=== PATIENT | female | born 1995 | race African-American/Black ===

== ENCOUNTER 2020-06-12 19:09 | Emergency (ER) | payer MEDICAID ==
[~2020-06-12] VITALS: Ht 149.9 cm; Wt 59.0 kg
--- NOTE | 2020-06-12 19:20 | NUR ---
ED Nurse Note: Patient walked into the ED from home accompanied by guardian with c/o bug bite onset 06/10 at left eye. Per guardian pt took clindamycun and developed hives and itchiness througout the body. Pt took benadryl at home but with no help. Pt denies SOB//CP, N&V, fever and chills.
--- NOTE | 2020-06-12 19:21 | NUR ---
ED Nurse Note: ERPA at bedside
--- NOTE | 2020-06-12 19:29 | Emergency Room Report ---
History of Present Illness General Chief Complaint: Skin Rash/Abscess Source: Caregiver Present Illness HPI 24-year-old female with history of hypertension here with mother who is her caregiver due to swelling around the left eye with minimal pain and pruritus x2 days. According to mom patient woke up with swollen left eye without any trauma 2 days ago, denies any eye discharge, photophobia, blurred vision. Denies fever and chills. Mom gave one of her own clindamycin pills to patient as reported in "I googled it and figured it will be the right treatment." Hives after. Denies anaphylaxis and difficulty breathing. Mom gave Benadryl and Benadryl appears to help. No urticaria or rash noted at this time. Mom reports likely due to a spider bite. Patient was in her room when this occurred. Patient is in no distress at this time. Denies nausea vomiting. Is compliant with taking her blood pressure medication. Denies . Allergies: Coded Allergies: No Known Allergies (Unverified , 06/12/20) COVID-19 Screening Contact w/high risk pt: No Experienced COVID-19 symptoms?: No COVID-19 Testing performed HAND EMBROIDERER: No Patient History Past Medical History: see triage record Past Surgical History: none Pertinent Family History: none Last Menstrual Period: 04/2020 Now: No Immunizations: UTD Reviewed Nursing Documentation: PMH: Agreed; PSxH: Agreed Nursing Documentation-PMH Hx Hypertension: Yes - white coat syndrome History Of Psychiatric Problem: Yes - depression Review of Systems All Other Systems: negative except mentioned in HPI Physical Exam Vital Signs Date Time Temp Pulse Resp B/P (MAP) Pulse Ox O2 Delivery O2 Flow Rate FiO2 06/12/20 19:11 98.4 95 16 179/102 (127) 97 Room Air Sp02 EP Interpretation: reviewed, normal General Appearance: no apparent distress, alert, GCS 15, non-toxic Head: normocephalic, atraumatic Eyes: left eye other - periorbital cellulitis ; bilateral eye normal inspection, bilateral eye PERRL ENT: hearing grossly normal, normal pharynx, no angioedema, normal voice Neck: full range of motion, supple/symm/no masses Respiratory: chest non-tender, lungs clear, normal breath sounds, speaking full sentences Cardiovascular #1: regular rate, rhythm, no edema Cardiovascular #2: 2+ carotid (R), 2+ carotid (L), 2+ radial (R), 2+ radial (L), 2+ dorsalis pedis (R), 2+ dorsalis pedis (L) Gastrointestinal: normal bowel sounds, non tender, soft, non-distended, no guarding, no rebound Musculoskeletal: back normal Neurologic: alert, oriented x3 Psychiatric: judgement/insight normal, memory normal, mood/affect normal, no suicidal/homicidal ideation Skin: other - Left lower eyelid swelling noted maxillary swelling appears to be periorbital cellulitis, otherwise eye within normal limit, conjunctival is not injected no discharge noted. Lymphatic: no adenopathy Medical Decision Making PA Attestation All diagnoses and treatment plans were reviewed and discussed with my supervising physician Dr. Yip Diagnostic Impression: Primary Impression: Periorbital cellulitis of left eye Additional Impression: Allergic reaction caused by a drug ER Course 24-year-old female with history of hypertension here with mother who is her caregiver due to swelling around the left eye with minimal pain and pruritus x2 days. According to mom patient woke up with swollen left eye without any trauma 2 days ago, denies any eye discharge, photophobia, blurred vision. Denies fever and chills. Mom gave one of her own clindamycin pills to patient as reported in "I googled it and figured it will be the right treatment." Hives after. Denies anaphylaxis and difficulty breathing. Mom gave Benadryl and Benadryl appears to help. No urticaria or rash noted at this time. Mom reports likely due to a spider bite. Patient was in her room when this occurred. Patient is in no distress at this time. Denies nausea vomiting. Is compliant with taking her blood pressure medication. Denies . Ddx considered but are not limited to: Periorbital cellulitis, anaphylaxis, allergic reaction caused by medication, bacterial conjunctivitis, allergic conjunctivitis, viral conjunctivitis, periorbital cellulitis, global trauma At this time no imaging needed as no tenderness to palpation noted, no signs of trauma noted, and advised patient to return for imaging no improvement with antibiotics. Vital signs: are WNL, pt. is afebrile H&PE are most consistent with: Periorbital cellulitis left eye, allergic reaction caused by drug ORDERS: Augmentin, prednisone Mom is very concerned about prednisone and I only wrote 3-day supply 40 mg daily. Advised patient to continue taking Benadryl. ED INTERVENTIONS: None required at this time. DISCHARGE: At this time pt. is stable for d/c to home. Will provide printed patient care instructions, and any necessary prescriptions. Care plan and follow up instructions have been discussed with the patient prior to discharge. Follow primary care doctor, take medication as directed, continue taking Benadryl, if worsening symptom, anaphylaxis, difficulty breathing or swallowing return to the emergency Last Vital Signs Date Time Temp Pulse Resp B/P (MAP) Pulse Ox O2 Delivery O2 Flow Rate FiO2 06/12/20 19:11 98.4 95 16 179/102 (127) 97 Room Air Disposition: HOME, SELF-CARE Condition: Stable Scripts Prednisone* (PREDNISONE*) 20 Mg Tablet 40 MG ORAL DAILY for 3 Days, #6 TAB Prov: Galdino Almodovar 06/12/20 Amoxicillin/Potassium Clav 875-125* (AUGMENTIN 875-125 TABLET*) 1 Each Tablet 1 TAB ORAL TWICE A DAY for 7 Days, #14 TAB Prov: Galdino Almodovar 06/12/20 Patient Instructions: Allergies, [id number], Cellulitis, [id number] Additional Instructions: Take medication as directed, follow primary care provider, if worsening symptoms return to the emergency room Galdino Almodovar Jun 12, 2020 19:28
[2020-06-12] MEDS ORDERED: AUGMENTIN 875-1 EAC1 ORAL (19:30)
[2020-06-12] MEDS ORDERED: PREDNISONE20 MG ORAL (19:30)
[2020-06-12 19:38] VITALS: BP 145/84
--- NOTE | 2020-06-12 19:38 | NUR ---
ER DISCHARGE NOTE: Patient is cleared to be discharged per ERMD, pt is aox4, on room air, with stable vital signs. pt and guardian was given dc and prescription instructions, pt adn guardian was able to verbalize understanding, pt id band and removed. pt is able to ambulate with steady gait. pt took all belongings.
== END 2020-06-12 19:40 | disposition home or self-care (01) ==
LOC: EMR 19:25
DX: L03.213 Periorbital cellulitis (principal); L29.9 Pruritus, unspecified; T36.8X5A Adverse effect of other systemic antibiotics, initial encounter
CPT/HCPCS: 99282

== ENCOUNTER 2020-06-17 08:51 | Emergency (ER) | payer MEDICAID ==
[~2020-06-17] VITALS: Ht 149.9 cm; Wt 49.4 kg
[~2020-06-17 08:51] MED LIST: AUGMENTIN 875-1 EAC1 ORAL; PREDNISONE20 MG ORAL
[2020-06-17 09:10] VITALS: BP 153/98
--- NOTE | 2020-06-17 09:10 | NUR ---
ED Nurse Note: Pt ambulated to ED from home accompanied by family member d/t possible allergic reaction from an insect bite. Pt is AOx4, cooperative to care, breathing even and unlabored, VSS, on RA, afebrile on triage, complains of itchiness started since saturday.
[2020-06-17] MEDS ORDERED: HYDROCORTISONE28 G2 TP (09:22)
[2020-06-17] MEDS ORDERED: CETIRIZINE HCL10 M1 PO (09:22)
--- NOTE | 2020-06-17 09:25 | Emergency Room Report ---
History of Present Illness General Chief Complaint: Skin Rash/Abscess Source: Patient Present Illness HPI Disclaimer: Please note that this report is being documented using DRAGON technology. This can lead to erroneous entry secondary to incorrect interpretation by the dictating instrument. HPI: 24-year-old female presents for evaluation of hives. She reports not itchy welts over her lower extremities and lower back for the past few days. They seem to come and go. She was recently started on Augmentin for facial cellulitis secondary to a spider bite. Symptoms at that improved. She has been taking Benadryl and prednisone. Mom thinks that the Benadryl is making her break out as her is reportedly allergic to Benadryl. Denies wheezing, nausea, vomiting, lightheadedness, palpitations or other symptoms. Currently in no distress and no other complaints. No other history of allergies. PMH: Reviewed PSH: Reviewed Allergies: None reported Social Hx: Reviewed Allergies: Coded Allergies: No Known Allergies (Unverified , 06/12/20) COVID-19 Screening Contact w/high risk pt: No Experienced COVID-19 symptoms?: No COVID-19 Testing performed CELERY STRIPPER: No Patient History Now: No Nursing Documentation-PMH Past Medical History: No History, Except For Hx Hypertension: Yes - white coat syndrome Review of Systems All Other Systems: negative except mentioned in HPI Physical Exam Vital Signs Date Time Temp Pulse Resp B/P (MAP) Pulse Ox O2 Delivery O2 Flow Rate FiO2 06/17/20 09:02 97.5 95 17 153/98 (116) 99 Room Air General: Awake and alert, no acute distress HEENT: NC/AT. EOMI. Cardiovascular: RRR. S1 and S2 normal. No murmur appreciated Resp: Normal work of breathing. No cough, wheezing or crackles appreciated Abdomen: Abdomen is soft, nondistended. Nontender Skin: Scattered urticaria over the lower extremities centered around the thighs and lower back. No overlying warmth, fluctuance, ulceration or signs of infection. MSK: Normal tone and bulk. Moving all extremities. No obvious deformity. Neuro: Awake and alert. Mentating appropriately. Medical Decision Making Diagnostic Impression: Primary Impression: Hives ER Course 24-year-old female presents for urticaria. Appears to be an allergic reaction of some sort. The patient is already taking prednisone and Benadryl though mom thinks that the Benadryl is the offending agent. May be having a reaction to the Augmentin as well. Infection around the eye appears to have resolved. Patient will discontinue antibiotics and mom wants her to stop taking Benadryl as well. Will start on cetirizine and prescribed hydrocortisone cream. Instructed to keep a journal as to when the hives occur and to follow-up with PMD regarding outpatient testing. No signs of anaphylaxis. Stable vital signs no respiratory distress speaking full sentences. Otherwise well-appearing stable for outpatient follow-up. Instructed to return with new or worsening symptoms. Last Vital Signs Date Time Temp Pulse Resp B/P (MAP) Pulse Ox O2 Delivery O2 Flow Rate FiO2 06/17/20 09:02 97.5 95 17 153/98 (116) 99 Room Air Disposition: HOME, SELF-CARE Condition: Stable Scripts Cetirizine Hcl (ZyrTEC*) 10 Mg Tab.chew 10 MG PO DAILY for Allergies, #14 TAB Prov: Emerson Yip MD 06/17/20 Hydrocortisone 1% Oint (Hydrocortisone 1% Oint*) Y Oint 5 GM TP BID, #28 GM Prov: Emerson Yip MD 06/17/20 Referrals: [facility]. [facility] Additional Instructions: Stop taking amoxicillin as you may be developing a reaction. Follow-up with your primary doctor for allergy testing. Continue using the prednisone. Start taking the other medications as prescribed. Return with new or worsening symptoms. Emerson Yip MD Jun 17, 2020 09:25
[2020-06-17 09:28] VITALS: BP 148/96
--- NOTE | 2020-06-17 09:28 | NUR ---
ER DISCHARGE NOTE: Patient is cleared to be discharged per ERMD, pt is aox4, on room air, with stable vital signs. pt was given dc and prescription instructions, pt was able to verbalize understanding, pt id band removed. pt is able to ambulate with steady gait. pt took all belongings.
[2020-06-17] MEDS ORDERED: ACETAMINOP160 MG/5 M ORAL ×2 (15:21)
== END 2020-06-17 09:28 | disposition home or self-care (01) ==
LOC: EMR 09:25
DX: L50.9 Urticaria, unspecified (principal); I10 Essential (primary) hypertension
CPT/HCPCS: 99282